=== PATIENT | female | born 1980 | race Hispanic/Latino ===

== ENCOUNTER 2019-03-25 07:16 | Observation (INO) | payer MEDICARE ==
[2019-03-22 12:48] LABS: BASOPHILS % (AUTO) 0.6 % (0.0-5.0); EOSINOPHILS % (AUTO) 4.5 % (0.0-8.0); HEMATOCRIT 34.6 % (36-48); LYMPHOCYTES % (AUTO) 21.9 % (21.0-51.0); MEAN CORPUSCULAR HEMOGLOBIN 32.1 pg (27.0-33.0); MEAN CORPUSCULAR HGB CONC 33.4 g/dL (32.0-36.0); MEAN CORPUSCULAR VOLUME 96.1 fL (79-99); MONOCYTES % (AUTO) 8.4 % (3.0-13.0); NEUTROPHILS % (AUTO) 64.6 % (40.0-77.0); PLATELET COUNT (AUTO) 198 K/uL (130-400); RED CELL DISTRIBUTION WIDTH 14.7 % (11.0-15.5); WHITE BLOOD COUNT (AUTO) 5.4 K/uL (4.8-10.8)
[2019-03-22 12:49] VITALS: BP 158/102
[2019-03-22 12:53] LABS: APPEARANCE,URINE Clear (CLEAR); BILIRUBIN,URINE Negative (NEGATIVE); COLOR,URINE Yellow (YELLOW); GLUCOSE, URINE (UA) TRACE mg/dL (NEGATIVE); KETONES,URINE Negative (NEGATIVE); LEUKOCYTE ESTERASE ,URINE Negative (NEGATIVE); NITRATE,URINE Negative (NEGATIVE); OCCULT BLOOD,URINE Negative (NEGATIVE); PH,URINE >=9.0 (5.0-8.0); PROTEIN,URINE 300 mg/dL (NEGATIVE); UROBILINOGEN,URINE 0.2 mg/dL (0.2-1.0)
[2019-03-22 12:56] LABS: CREATININE 7.5 mg/dL (0.5-1.5); POTASSIUM 4.7 mmol/L (3.5-5.1)
[2019-03-22 13:00] LABS: INR 0.94 (0.85-1.15); PARTIAL THROMBOPLASTIN TIME 37.5 SEC (26.3-35.5); PROTHROMBIN TIME 9.9 SEC (9.6-11.6)
[2019-03-22 13:22] LABS: BACTERIA,URINE Few /HPF (None Seen)
[2019-03-22 13:23] LABS: RBC,URINE 0-1 /HPF (0-1)
[2019-03-22 13:24] LABS: WBC,URINE 0-1 /HPF (0-1)
--- NOTE | 2019-03-24 12:15 | NUR ---
ABNORMAL CXR CALLED [facility] TO REPORT CXR, SPOKE TO FUNMI. PER FUNMI, TO FAX CXR RESULT AND WILL REPORT IT TO DR. MAYCOL JOHNSTON' FINISHING PAN OPERATOR. CXR FAXED, FUNMI CONFIRMED THEY RECEIVED IT. WILL FAX US BACK FOR ANY ORDERS. UPDATED H&P ALSO PENDING TO BE FAXED TO US PER CLINIC STAFF.
--- NOTE | 2019-03-24 17:42 | NUR ---
NO NEW ORDER FOR XRAY RESULT (CHEST) FROM 03/22/19.
[~2019-03-25] VITALS: Ht 166.4 cm; Wt 61.1 kg
[2019-03-25] VITALS (9 sets, daily range): BP systolic 123–155; BP diastolic 74–104
[~2019-03-25 07:16] MED LIST: ACET1TAB25 PO; AMLO10TA4 PO; FERR210T PO; HYDR-4153 PO; LINA145C PO; METO-409 PO; SODIUM CHLORIDE 0.9% 500ML 500 ML IV SCH
--- NOTE | 2019-03-25 08:00 | NUR ---
PRE-PROCEDURE RECEIVED FROM HOME VIA AMBULATING TO DAY PT ROOM 9 FOR SCHEDULED RT AND LHC. AWAKE IN NO ACUTE DISTRESS. CONNECTED TO CONTINUOUS CARDIOPULMONARY. SIDE RAILS UP X2, BED IN LOWEST POSITION, AND CALL LIGHT W/IN REACH.
[2019-03-25] MEDS ORDERED: NITROGLYCERIN 5 MG/ML 10 ML VIAL IV ONE (11:42)
[2019-03-25] MEDS ORDERED: IOHEXOL 350 MG/ML 100ML INFUS..BTL IV ONE (11:42)
[2019-03-25] MEDS ORDERED: IOHEXOL-350 50ML VIAL IV ONE (11:42)
[2019-03-25] MEDS ORDERED: LIDOCAINE HCL 2% 20ML ONE (11:42)
[2019-03-25] MEDS ORDERED: MIDAZOLAM HCL 1 MG/ML 2ML VIAL ONE (12:28)
[2019-03-25] MEDS ORDERED: HYDRALAZINE HCL 20 MG/ML VIAL ONE (13:21)
[2019-03-25] MEDS ORDERED: FENTANYL CITRATE PF 50 MCG/1 ML 2ML VIAL ONE (13:33)
[2019-03-25] MEDS: ACETAMINOPHEN-CODEINE 300/30MG TAB PO SCH ×3 (13:45→23:48)
[2019-03-25] MEDS ORDERED: PHARMACY COMMUNICATION MISC SCH (13:45)
[2019-03-25] MEDS: FERRIC CITRATE 420 MG PO SCH ×2 (14:00→21:00)
[2019-03-25] MEDS: FUROSEMIDE 40 MG TABLET PO SCH (14:15)
--- NOTE | 2019-03-25 16:45 | NUR ---
DIEGO RIVERA SIGNED FOR [facility] INFO FAXED AND EMAILED. PLAN TO DC IN THE MORNING. Addendum: 03/25/19 at 1648 by USAMA SAMPSON RN CM Amended: Links added.
[2019-03-25] MEDS ORDERED: NITROGLYCERIN 0.4 MG SL TAB SL ONE (19:52)
[2019-03-25] MEDS ORDERED: NITROGLYCERIN 0.4 MG SL TAB SL PRN (20:15)
[2019-03-25 20:47] LABS: CREATINE KINASE, TOTAL 36 U/L (21-232); MYOGLOBIN 239 ng/mL (10-92); TROPONIN I < 0.04 ng/mL (0.00-0.06)
[2019-03-25] MEDS: ENTRESTO PO SCH (21:00)
[2019-03-25] MEDS: SODIUM CHLORIDE 0.9% 10 ML VIAL IVP SCH ×2 (21:45→22:19)
[2019-03-25] MEDS: CARVEDILOL 12.5 MG TABLET PO SCH (22:20)
[2019-03-26 00:01] VITALS: BP 129/86
[2019-03-26 04:19] VITALS: BP 135/86
[2019-03-26 05:07] LABS: BASOPHILS % (AUTO) 0.8 % (0.0-5.0); EOSINOPHILS % (AUTO) 1.4 % (0.0-8.0); HEMATOCRIT 27.5 % (36-48); LYMPHOCYTES % (AUTO) 21.4 % (21.0-51.0); MEAN CORPUSCULAR HEMOGLOBIN 32.4 pg (27.0-33.0); MEAN CORPUSCULAR HGB CONC 34.4 g/dL (32.0-36.0); MEAN CORPUSCULAR VOLUME 94.1 fL (79-99); MONOCYTES % (AUTO) 7.6 % (3.0-13.0); NEUTROPHILS % (AUTO) 68.8 % (40.0-77.0); PLATELET COUNT (AUTO) 174 K/uL (130-400); RED BLOOD CELL COUNT(AUTO) 2.92 MIL/uL (4.00-5.50); RED CELL DISTRIBUTION WIDTH 14.7 % (11.0-15.5); WHITE BLOOD COUNT (AUTO) 5.1 K/uL (4.8-10.8)
[2019-03-26] MEDS: SODIUM CHLORIDE 0.9% 10 ML VIAL IVP SCH (05:21)
[2019-03-26 05:24] LABS: CREATININE 6.5 mg/dL (0.5-1.5); POTASSIUM 3.8 mmol/L (3.5-5.1)
[2019-03-26 07:00] VITALS: BP 140/88
[2019-03-26] MEDS: ACETAMINOPHEN-CODEINE 300/30MG TAB PO SCH ×2 (07:45→13:45)
[2019-03-26] MEDS: CARVEDILOL 12.5 MG TABLET PO SCH (08:52)
[2019-03-26] MEDS: FUROSEMIDE 40 MG TABLET PO SCH (08:52)
[2019-03-26] MEDS ORDERED: AMLODIPINE BESYLATE 5 MG TAB PO SCH (09:00)
[2019-03-26] MEDS ORDERED: ***HM***(Linaclotide (Linzess) 145 MCG) PO SCH (09:00)
[2019-03-26] MEDS: FERRIC CITRATE 420 MG PO SCH ×2 (09:00→14:00)
[2019-03-26] MEDS: ENTRESTO PO SCH (09:00)
[2019-03-26 11:00] VITALS: BP 141/85
[2019-03-26] MEDS ORDERED: SACU1TAB PO (12:05)
[2019-03-26] MEDS ORDERED: CARV12.511 PO (12:05)
--- NOTE | 2019-03-26 16:00 | NUR ---
DISCHARGE INFORMATION PROVIDED TO PATIENT ALONG WITH PRESCRIPTION . PATIENT OCNT WITH [employer] PROVIDED BY BATCH TRUCKER.. LET HER KNOW ON TO CALL THURSDAY FOR APPT TO HEART CLINIC .INFORMATION ON DISCHARGE PAPER . PATIENT VERBILIZED UNDERSTANDING
[2019-03-29 05:15] LABS: HEPATITIS A ANTIBODY IGM Negative (Negative); HEPATITIS B CORE IGM Negative (Negative); HEPATITIS Bs ANTIGEN SCREEN P Negative (Negative)
== END 2019-03-26 15:05 | disposition home or self-care (01) ==
LOC: DAH 07:16 → DAHIP 07:17 → 3DH 14:53
PROVIDERS: ADMIT Internal Medicine; ATTEND Internal Medicine
DX: I42.0 Dilated cardiomyopathy (principal); I13.2 Hypertensive heart and chronic kidney disease with heart failure and with stage 5 chronic kidney disease, or end stage renal disease; I50.83 High output heart failure; N18.6 End stage renal disease; I50.23 Acute on chronic systolic (congestive) heart failure; E11.22 Type 2 diabetes mellitus with diabetic chronic kidney disease; I25.10 Atherosclerotic heart disease of native coronary artery without angina pectoris; M32.9 Systemic lupus erythematosus, unspecified; Z16.24 Resistance to multiple antibiotics; Z98.82 Breast implant status; Z99.2 Dependence on renal dialysis; Z79.899 Other long term (current) drug therapy
CPT/HCPCS: G0257 ×61; 36415; 71045; 80048; 80074; 81001; 82550; 83874; 84484; 84703; 85025; 85610; 85730; 90935; 93005; 93460; 99156; 99157; A4606; C1760; C1894; G0378; J0360; J1644; J2250; J3010; J3490; Q9967